=== PATIENT | female | born 1980 | race Asian ===

== ENCOUNTER 2019-12-16 10:26 | Emergency (ER) | payer OTHER, SELFPAY ==
[~2019-12-16] VITALS: Ht 160 cm; Wt 52.6 kg
[2019-12-16 13:22] VITALS: BP 124/78
== END 2019-12-16 13:22 | disposition home or self-care (01) ==
LOC: ED 10:26
DX: B34.9 Viral infection, unspecified (principal)
CPT/HCPCS: 87804; Q0092

== ENCOUNTER 2020-01-19 11:21 | Emergency (ER) | payer OTHER ==
[~2020-01-19] VITALS: Ht 165.1 cm; Wt 52.2 kg
[2020-01-19 11:31] VITALS: Ht 165.1 cm; Wt 52.2 kg
[2020-01-19 12:42] LABS: CALCIUM 9.2 mg/dL (8.5-10.1); CHLORIDE SERUM 106 mmol/L (98-107); CREATININE SERUM 0.5 mg/dL (0.6-1.0); GFR1 > 60 mL/min; GLUCOSE SERUM 103 mg/dL (74-106); POTASSIUM SERUM 3.9 mmol/L (3.5-5.1); SODIUM SERUM 142 mmol/L (136-145)
[2020-01-19 12:45] LABS: BASOPHIL % 0.2 % (0-2); PLATELET COUNT 152 x10^3mcL (130-400); RED CELL DISTRIBUTION WIDTH 12.3 % (11.5-14.5)
[2020-01-19 12:46] LABS: ALKALINE PHOSPHATASE 54 U/L (46-116); ALT/SGPT 16 U/L (14-59); AST/SGOT 7 U/L (15-37); BILIRUBIN TOTAL 0.44 mg/dL (0.20-1.00); TOTAL PROTEIN, SERUM 7.2 g/dL (6.4-8.2)
[2020-01-19 12:47] VITALS: BP 108/64
== END 2020-01-19 13:38 | disposition home or self-care (01) ==
LOC: ED 11:21
PROVIDERS: Emergency Medicine
DX: R07.89 Other chest pain (principal); R09.89 Other specified symptoms and signs involving the circulatory and respiratory systems
CPT/HCPCS: 36415; Q0092